=== PATIENT | male | born 1985 | race Caucasian/White ===

== ENCOUNTER 2024-09-24 13:55 | Emergency (ER) | payer BC ==
[~2024-09-24] VITALS: Ht 188 cm; Wt 97.2 kg
[2024-09-24 14:06] VITALS: BP 156/83
--- NOTE | 2024-09-24 14:15 | ELECTROCARDIOGRAPH REPORT ---
[facility] Test Date: 2024-09-24 Test Time: 14:13:48 Pat Name: YEIMY LIMON Department: EMERGENCY ROOM Room: Gender: M Preventative Maintenance Technician: : 1985 Requested By: STEFANI BOLES Order Number: [id number] Reading MD: Dr. Delfino Farr Measurements Intervals [place] Rate: 88 P: 29 VA: 140 QRS: 36 QRSD: 85 T: -10 QT: 355 QTc: 430 Interpretive Statements Sinus rhythm Posterior infarct, old Borderline T abnormalities, inferior leads Electronically Signed On 09-24-2024 19:21:[address] Delfino Farr Please click the below link to view image of tracing.
--- NOTE | 2024-09-24 14:39 | RADIOLOGY REPORT ---
CHEST RADIOGRAPH Indication: CP Technique: Single frontal view of the chest was obtained COMPARISON: None FINDINGS: Lines and Tubes: None Lungs: Clear Pleura: No effusion. No pneumothorax. Cardiomediastinal contours: Unremarkable Bones: Unremarkable IMPRESSION: No acute disease.
[2024-09-24 14:48] LABS: BASOPHILS # (AUTO) 0.1 X10'3 (0-0.2); BASOPHILS % (AUTO) 0.8 % (0-1); EOSINOPHILS # (AUTO) 0.3 X10'3 (0-0.9); EOSINOPHILS % (AUTO) 3.3 % (0-6); HEMATOCRIT 45.7 % (42.0-52.0); HEMOGLOBIN 16.1 g/dl (14.0-17.9); LYMPHOCYTES # (AUTO) 2.4 X10'3 (1.1-4.8); LYMPHOCYTES % (AUTO) 26.3 % (21-51); MEAN CORPUSCULAR HEMOGLOBIN 31.1 PG (27.0-31.0); MEAN CORPUSCULAR HGB CONC 35.2 g/dL (33.0-36.5); MEAN CORPUSCULAR VOLUME 88.3 FL (78-98); MEAN PLATELET VOLUME 8.5 FL (7.4-10.4); MONOCYTES # (AUTO) 0.7 X10'3 (0-0.9); MONOCYTES % (AUTO) 7.8 % (2-12); NEUTROPHILS # (AUTO) 5.5 X10'3 (1.8-7.7); NEUTROPHILS % (AUTO) 61.8 % (42-75); PLATELET COUNT 230 X10'3 (140-440); RED BLOOD COUNT 5.18 X10'6 (4.70-6.10)
--- NOTE | 2024-09-24 14:58 | Physician Documentation ---
History of Present Illness ~ Chief Complaint: Chest Wall Pain Stated Complaint: SOB/BACK PAIN Time Seen by MD: 15:07 OK to notify your PCP?: Yes Source: patient Mode of Arrival: POV Exam Limitations: no limitations HPI This is a 38-year-old male who states that is an about 1:00 a.m. today which is about 2-1/2 hours ago he was getting up from a meeting where he was sitting and had a sudden onset of sharp tightening pain beneath his left scapula that is started wrapping around his left side and now to his left frontal sternal area. He says the pain is worse with taking a deep breath and makes him feel like he is short of breath. The pain is also worse with movement of the trunk and lifting his left arm. He denies known trauma to the area. He was not complaining of substernal crushing chest pain with the radiation to the left arm left shoulder or left side of the jaw. He says now he was getting a burning sensation wrapping around the left trunk. He denies recent prolonged travel, exogenous hormone use, tobacco use or recent surgeries. He denies swelling in his legs. Medication Reconciliation Allergies: Coded Allergies: No Known Allergies (Unverified , 09/24/24) Physical Exam Vital Signs: Heart Rate: 105, Respiratory Rate: 17, BP: 156/83, Pulse Oximetry: 100, Weight: 97.200 Oxygen Flow Rate: 0 Physical Exam VITALS: Reviewed and as above. GENERAL: Alert, nontoxic appearing, no apparent distress. RESPIRATORY: No increased work of breathing, no respiratory distress, speaking in full clear sentences General Appearance: alert, WD/WN, no apparent distress Respiratory No accessory muscle use or retractions. Lungs are clear to auscultation all edwards. There is reproducible chest wall tenderness of the mid posterior chest wall beneath the scapula. No obvious crepitus deformity or flail segment. Positive spasm. Cardiovascular No rubs, gallops or murmurs. No peripheral edema, cyanosis or clubbing of the extremities. Skin: normal color, warm/dry Progress Results/Orders Reviewed/noted all lab results: Yes Results/Orders Orders - STELLA COURTNEY Prednisone Tablet (Prednisone Tablet) (09/24/24 15:30) Vital Signs 09/24/24 14:06 Pulse 105 Resp 17 B/P (MAP) 156/83 Pulse Ox 100 O2 Flow Rate 0 Laboratory Tests Test 09/24/24 14:19 White Blood Count 9.0 Red Blood Count 5.18 Hemoglobin 16.1 Hematocrit 45.7 Mean Corpuscular Volume 88.3 Mean Corpuscular Hemoglobin 31.1 H Mean Corpuscular Hemoglobin Concent 35.2 Red Cell Distribution Width 13.0 Platelet Count 230 Mean Platelet Volume 8.5 Neutrophils (%) (Auto) 61.8 Lymphocytes (%) (Auto) 26.3 Monocytes (%) (Auto) 7.8 Eosinophils (%) (Auto) 3.3 Basophils (%) (Auto) 0.8 Neutrophils # (Auto) 5.5 Lymphocytes # (Auto) 2.4 Monocytes # (Auto) 0.7 Eosinophils # (Auto) 0.3 Basophils # (Auto) 0.1 CBC Comment Sodium Level 139 Potassium Level 3.8 Chloride Level 104 Carbon Dioxide Level 28.3 Anion Gap 7 L Blood Urea Nitrogen 21 H Creatinine 1.26 H Estimated GFR/1.73 m2 64 BUN/Creatinine Ratio 16.7 Glucose Level 91 Calcium Level 8.8 Total Bilirubin 0.5 Aspartate Amino Transf (AST/SGOT) 13 Alanine Aminotransferase (ALT/SGPT) 38 Alkaline Phosphatase 94 Troponin I High Sensitivity 4 Pro-B-Type Natriuretic Peptide 52 Total Protein 7.5 Albumin 4.3 Globulin 3.2 Albumin/Globulin Ratio 1.3 Chemistry Comments EKG/XRAY/CT/US/VASC/MRI EKG : Intepreting Monitor?: No Additional Comment Twelve lead EKGs interpreted by me: Sinus rhythm rate of 88. Posterior infarct old. Borderline T-wave abnormalities inferior leads. Chest X-Ray : Interpreted By: self Views: 1 VIEW Additional Comments One-view chest x-ray interpreted by me: No acute disease process. The cardiac silhouette and lung edwards are appropriate. No obvious bony abnormalities. Soft tissues unremarkable Heart Score: Heart Score Response (Comments) Value History Slightly Suspicious 0 EKG Normal 0 Age <45 0 Risk Factors No known risk factors 0 Troponin Normal limit 0 Total 0 Medical Decision Making Findings MSE performed in triage and patient returned to ED lobby by nursing staff The patient was an otherwise healthy 38-year-old male who is only bad habit is using nicotine pouches and drinking occasionally. He denies smoking tobacco or drug use. He has not no significant past medical history and no strong cardiac family history. He was workup was all within normal limits. The pain is a dull aching of the time sharp stabbing pain beneath his left scapula that radiates around the common dermatomal of the chest in his worse with deep inspiration and movement of the trunk. The pain is all reproducible and sounds more consistent with a chest wall musculoskeletal pain. I suspect the patient probably has thoracic radiculopathy. I gave the patient prednisone 60 mg p.o. and we will continue with the burst dose of prednisone once a day for the next four days as he states the pain is uncomfortable making it difficult for him to sit up and move the trunk. I reassured the patient that it did not believe that this is cardiac however I did tell him you can follow up with the primary care physician for referral to a steel wool machine operator for further outpatient testing if necessary or desired. Additional Information Chest wall pain. Thoracic radiculopathy. Low clinical suspicion for cardiovascular etiology. Low clinical suspicion for PE. Departure Disposition: HOME / SELF CARE / HOMELESS Impression: Primary Impression: Thoracic radiculopathy Additional Impression: Chest wall pain Condition: Stable Discharge Instructions: Chest Wall Pain Additional Instructions: As we discussed this pain does not appear to be cardiac. Take the medications as prescribed and no activities such as heavy lifting or exercising that can worsen the symptoms. Follow up with the primary care physician for recheck in the next one or two days. If deemed necessary you can discuss a referral to Cardiology for further outpatient testing. Return to the ER any point for any worsening or concerning symptoms. Referrals: NO PRIMARY CARE PROVIDER (PCP) Prescriptions Prednisone* (Prednisone*) 20 Mg Tablet 3 TAB PO DAILY for 4 Days, #12 TAB Prov: STELLA COURTNEY 09/24/24 Signature Scribe Signature: No scribe Attestation: The note accurately reflects work and decisions made by me.Stella HAYES 09/24/24 15:35 STEFANI BOLES Sep 24, 2024 14:58 STELLA COURTNEY Sep 24, 2024 15:34
[2024-09-24 15:08] LABS: ALANINE AMINOTRANSFERASE 38 U/L (12-78); ALBUMIN 4.3 G/DL (3.4-5.0); ALBUMIN/GLOBULIN RATIO 1.3 (1.1-1.5); ALKALINE PHOSPHATASE 94 IU/L (46-116); ANION GAP 7 (8-16); ASPARTATE AMINO TRANSFERASE 13 U/L (10-37); BILIRUBIN,TOTAL 0.5 MG/DL (0.1-1.0); BLOOD UREA NITROGEN 21 MG/DL (7-18); BUN/CREATININE RATIO 16.7 (10.0-20.0); CALCIUM 8.8 MG/DL (8.5-10.1); CHLORIDE 104 MMOL/L (99-107); CREATININE 1.26 MG/DL (0.60-1.10); GLUCOSE 91 MG/DL (70-104); POTASSIUM 3.8 MMOL/L (3.5-5.1); SODIUM 139 MMOL/L (135-145); TOTAL CARBON DIOXIDE 28.3 MMOL/L (24-32); TOTAL PROTEIN 7.5 G/DL (6.4-8.2); eCRCL 93 ML/MIN; eGFR 64 ML/MIN
[2024-09-24 15:15] LABS: PRO BRAIN NATRIURETIC PEPTIDE 52 PG/ML (0-125)
[2024-09-24] MEDS ORDERED: PRED20TA PO (15:35)
[2024-09-24] MEDS: predniSONE 20 mg tablet PO ONE (15:47)
[2024-09-24 15:50] VITALS: PULSE 92; RESP 15; O2SAT 98
== END 2024-09-24 15:53 | disposition home or self-care (01) ==
LOC: ER 13:55
DX: M54.14 Radiculopathy, thoracic region (principal)
CPT/HCPCS: 36415; 71045; 80053; 83880; 84484; 85025; 93005; 99285; J7512